=== PATIENT | female | born 1965 | race Hispanic/Latino ===

== ENCOUNTER 2018-01-26 16:53 | Outpatient (RCR) | payer BC, OTHER ==
[~2018-01-26 16:53] MED LIST: ADVIL200 MG PO
== END 2018-02-03 ==
LOC: PT 16:53
PROVIDERS: ATTEND Specialist
DX: S33.5XXA Sprain of ligaments of lumbar spine, initial encounter (principal); M72.2 Plantar fascial fibromatosis
CPT/HCPCS: 97161; G8978; G8979

== ENCOUNTER 2018-03-04 16:00 | Outpatient (RCR) | payer BC, OTHER | END 2018-03-05 | LOC: PT 16:00 | PROVIDERS: ATTEND Specialist | DX: S39.012A Strain of muscle, fascia and tendon of lower back, initial encounter (principal); M54.5 Low back pain; M72.2 Plantar fascial fibromatosis; M79.672 Pain in left foot; M62.81 Muscle weakness (generalized) ==

== ENCOUNTER → 2021-02-13 | Day surgery (SDC) | payer BC, OTHER ==
[~2021-02-13] MED LIST changes: +ACETAMINOPHEN/CODEINE 300MG - 30MG TAB ONE; +BUPIVACAINE HCL 0.5% INJ 30 ML VIAL INJ ONE; +DEXAMETHASONE SOD PHOS INJ 4 MG/ML SDV ONE; +FENTANYL CITRATE/PF 100MCG/2 ML INJ ONE; +KETOROLAC TROMETHAMINE 30 MG/ML VIAL ONE; +LIDOCAINE HCL 2% LOCAL INJ 5 ML SDV VIAL INJ ONE; +MIDAZOLAM HCL 2 MG/2 ML VIAL ONE; +ONDANSETRON HCL INJ 2MG/ML 2ML 2 MG/ML VIAL ONE; +PLAQUENIL200 MG PO; +POVIDONE IODINE 0.05% 0.05 % ML PO ONE; +PROPOFOL IV EMULSION 10 MG/ML 20 ML VIAL ONE; +SEVOFLURANE INHAL SOLN 250 ML PEN BTL ONE; +SODIUM CHLORIDE 0.9% 50ML 100 ML ONE
[2021-02-13 12:10] VITALS: BP 116/70
== END | disposition home or self-care (01) ==
LOC: OR 09:48
PROVIDERS: ATTEND Specialist
DX: S83.222A Peripheral tear of medial meniscus, current injury, left knee, initial encounter (principal); M17.12 Unilateral primary osteoarthritis, left knee; M19.041 Primary osteoarthritis, right hand; M22.42 Chondromalacia patellae, left knee; S60.221A Contusion of right hand, initial encounter; W01.198A Fall on same level from slipping, tripping and stumbling with subsequent striking against other object, initial encounter; Y92.89 Other specified places as the place of occurrence of the external cause; Z01.810 Encounter for preprocedural cardiovascular examination; Z01.812 Encounter for preprocedural laboratory examination; Z20.822 Contact with and (suspected) exposure to COVID-19
CPT/HCPCS: 29881; 93005; J0690; J1100; J1885; J2001; J2250; J2405; J2704; J3010; U0002